=== PATIENT | male | born 1950 | race African-American/Black ===

== ENCOUNTER 2018-07-17 12:10 | Emergency (ER) | payer OTHER ==
[~2018-07-17] VITALS: Ht 177.8 cm; Wt 65.3 kg
[2018-07-17 12:18] VITALS: BP 161/90
--- NOTE | 2018-07-17 12:30 | NUR ---
67 [place] [facility] [place] SIDED HEAD PAIN AND HEADACHE 12/22. PT WAS TRANSFERING FROM THE CHAIR TO THE BED AND ROLLED ONTO THE FLOOR AND HIT HEAD, PER [facility]. -ECCYMOSIS, -REDNESS, -SWELLING AT SITE. [id number], FAMILY BEDSIDE. BS 113 ON FIELD. PT NOT ON BLOOD THINNERS PER [facility]. VSS AT THIS TIME. BED IS DOWN, LOCKED, BED RAIL X 1, ERMD TO SEE PT. PMH- DM, HTN, GTUBE, SACRAL PRESSURE ULCER, OSTEOMYELITIS, DYSPHAGIA, PATCH OVER LT EYE FOR TUMOR
--- NOTE | 2018-07-17 12:32 | NUR ---
DR GODWIN BEDSIDE
[2018-07-17] MEDS ORDERED: DICYCLOMINE HCL LIQUID 20 MG, ALUMINUM HYD/MAG/SIMETHICONE 30 ML, LIDOCAINE VISCOUS 2% ... PO ONE ×3 (12:35)
--- NOTE | 2018-07-17 13:08 | NUR ---
PT BEING TAKEN TO CT
--- NOTE | 2018-07-17 13:25 | NUR ---
pt returned from ct
[2018-07-17] MEDS ORDERED: IBUPROFEN 600 MG TAB PO ONE (13:30)
[2018-07-17 15:49] VITALS: BP 162/88
--- NOTE | 2018-07-17 15:49 | NUR ---
Patient discharged with v/s stable. Written and verbal after care instructions given and explained. Patient verbalized understanding. Wheel Chair Assisted with to car. All questions addressed prior to discharge. Advised to follow up with PMD. GIVEN COPY OF CT RESULTS
== END 2018-07-17 15:49 | disposition home or self-care (01) ==
LOC: MED 12:10
DX: S09.90XA Unspecified injury of head, initial encounter (principal); Z88.5 Allergy status to narcotic agent; W06.XXXA Fall from bed, initial encounter; Y93.89 Activity, other specified; Y92.89 Other specified places as the place of occurrence of the external cause; Y99.8 Other external cause status
CPT/HCPCS: 70450; 99284

== ENCOUNTER 2018-07-20 05:45 | Emergency (ER) | payer OTHER ==
[~2018-07-20] VITALS: Ht 177.8 cm; Wt 77.1 kg
[2018-07-20 05:53] VITALS: BP 157/99
--- NOTE | 2018-07-20 06:00 | NUR ---
BIBA REPORTS RIGHT EYE PAIN X 1 WEEK, WORSE TODAY. SWELLING NOTED IN BILATERAL EYES, GREEN DISCHARGE NOTED FROM LEFT EYE. VSS. SEEN HERE 07/17/18 WITH SAME PAIN. ERMD AT BEDSIDE, AWARE OF STATUS.
[2018-07-20] MEDS ORDERED: NACL 0.9% 1,000 ML IV ONE (06:07)
[2018-07-20] MEDS ORDERED: fentaNYL 0.05 MG/ML VIAL IVP ONE (06:10)
[2018-07-20] MEDS ORDERED: ONDANSETRON 4 MG/2 ML VIAL IVP ONE (06:10)
[2018-07-20] MEDS ORDERED: KETOROLAC 30 MG/ML VIAL IVP ONE (06:10)
[2018-07-20 06:16] LABS: BASOPHILS % (AUTO) 0.3 % (0.0-2.0); EOSINOPHILS # (AUTO) 0.1 K/uL (0-0.4); EOSINOPHILS % (AUTO) 1.2 % (0.0-4.0); HEMATOCRIT 37.4 % (36-52); HEMOGLOBIN 12.3 g/dL (12.0-18.0); LYMPHOCYTES # (AUTO) 1.9 K/uL (2.0-11.5); MEAN CORPUSCULAR HEMOGLOBIN 27 pg (27-31); MEAN CORPUSCULAR HGB CONC 33 g/dL (33-37); MONOCYTES % (AUTO) 9.6 % (1.7-9.3); NEUTROPHILS # (AUTO) 7.1 K/uL (1.8-7.7); NEUTROPHILS % (AUTO) 69.9 % (42.2-75.2); PLATELET COUNT (AUTO) 369 K/uL (140-450); RED BLOOD CELL COUNT(AUTO) 4.56 MIL/uL (4.20-6.10); RED CELL DISTRIBUTION WIDTH 14.1 % (11.6-13.7); WHITE BLOOD COUNT (AUTO) 10.2 K/uL (4.8-10.8)
[2018-07-20] MEDS ORDERED: SLIDE SUBQ (06:21)
[2018-07-20] MEDS ORDERED: CRAN450C GT (06:21)
[2018-07-20] MEDS ORDERED: D50SYR IV (06:21)
[2018-07-20] MEDS ORDERED: MAGN400S60 GT (06:21)
[2018-07-20] MEDS ORDERED: SENN-72 GT (06:21)
[2018-07-20] MEDS ORDERED: ACET-2619 PO (06:21)
[2018-07-20] MEDS ORDERED: GLU1I IM (06:21)
[2018-07-20] MEDS ORDERED: AMLO5TAB GT (06:21)
[2018-07-20] MEDS ORDERED: FERR325E14 GT (06:21)
[2018-07-20] MEDS ORDERED: NA P133N1 RC (06:21)
[2018-07-20] MEDS ORDERED: IBUP-1801 GT (06:21)
[2018-07-20] MEDS ORDERED: DOCU-299 GT (06:21)
[2018-07-20] MEDS ORDERED: ACET-5629 PO (06:21)
[2018-07-20] MEDS ORDERED: BISA-213 RC (06:21)
[2018-07-20] MEDS ORDERED: HYDR25SU91 RC (06:21)
[2018-07-20 06:25] LABS: ANION GAP 7.6 (8-16); CARBON DIOXIDE 32.3 mmol/L (21-32); CREATININE 0.8 mg/dL (0.7-1.3); POTASSIUM 3.9 mmol/L (3.5-5.1)
[2018-07-20 06:28] LABS: PROTHROMBIN TIME 10.1 secs (10.8-13.4)
[2018-07-20 06:30] LABS: ALBUMIN 3.1 g/dL (3.4-5.0); TOTAL BILIRUBIN 0.3 mg/dL (0.0-1.0)
--- NOTE | 2018-07-20 06:40 | NUR ---
STRAIGHT CATHED PATIENT TO OBTAIN URINE SAMPLE. PATIENT TOLERATED WELL. URINE SENT TO LAB.
--- NOTE | 2018-07-20 07:11 | NUR ---
REPORT GIVEN TO DAY SHIFT ENSRAVAN. VSS ON MONITOR.
--- NOTE | 2018-07-20 07:12 | NUR ---
RECEIVED REPORT FROM PUSHPA WARD. Addendum: 07/20/18 at 0715 by [facility] Patient appears to be resting comfortably in bed.BP 148/86.O2 SAT 100% WITH O2 NC 2 LPM. Respirations even and unlabored.PAIN 5/10 AT THIS TIME. WILL CONTINUE TO MONITOR.
--- NOTE | 2018-07-20 07:19 | NUR ---
DR VARGAS AT BEDSIDE.
--- NOTE | 2018-07-20 07:28 | NUR ---
PT TAKEN TO CT VIA [facility], ACCOMPANIED BY AUTOMOTIVE GENERATOR REPAIRER.
[2018-07-20 07:36] LABS: APPEARANCE,URINE CLEAR (CLEAR); BILIRUBIN,URINE NEGATIVE (NEGATIVE); BLOOD, URINE NEGATIVE (NEGATIVE); COLOR,URINE YELLOW (YELLOW); LEUKOCYTE ESTERASE ,URINE NEGATIVE (NEGATIVE); NITRITE, URINE NEGATIVE (NEGATIVE); PH,URINE 7.5 (5.0-9.0); UGLUCOSE NEGATIVE (NEGATIVE)
--- NOTE | 2018-07-20 08:32 | NUR ---
Dr. Denny evaluating patient at bedside.
--- NOTE | 2018-07-20 09:24 | NUR ---
SISTER AT BEDSIDE.
[2018-07-20 09:48] VITALS: BP 152/85
--- NOTE | 2018-07-20 09:48 | NUR ---
Patient does not wish to proceed with medical care recommended by DR BLANCHARD. Patient given information related to possible complications, up to and including , which could occur as a result of leaving hospital at this time. Patient verbalizes understanding of risks involved leaving against medical advice. Patient has signed AMA form.
== END 2018-07-20 09:48 | disposition left against medical advice (07) ==
LOC: MED 05:45
DX: E87.1 Hypo-osmolality and hyponatremia (principal); R53.1 Weakness; G95.9 Disease of spinal cord, unspecified; I10 Essential (primary) hypertension; E11.9 Type 2 diabetes mellitus without complications; R13.10 Dysphagia, unspecified; Z85.22 Personal history of malignant neoplasm of nasal cavities, middle ear, and accessory sinuses; Z88.5 Allergy status to narcotic agent; Z79.4 Long term (current) use of insulin; Z79.899 Other long term (current) drug therapy
CPT/HCPCS: 36415; 70450; 72125; 80053; 81003; 83605; 83735; 85025; 85379; 85610; 85651; 86140; 87040; 96374; 96375; 99284; C1758; J1885; J2405; J3010; J7030